=== PATIENT | male | born 1940 | race Caucasian/White ===

== ENCOUNTER 2017-02-19 22:52 | Emergency (ER) | payer OTHER ==
[~2017-02-19] VITALS: Ht 167.6 cm; Wt 84.2 kg
[~2017-02-19 22:52] MED LIST: ALBU17I INH; DUONI NEB; MOME1AER2 INH; PRED50; PRED5SOL PO; PROT40TA PO; [UNRECOGNIZED DRUG - CODE] OU
[2017-02-19 22:59] VITALS: BP 158/74; PULSE 70; RESP 16; TEMP 97.7; O2SAT 93
== END 2017-02-20 00:05 | disposition left against medical advice (07) ==
LOC: PHED 22:52
DX: Z53.21 Procedure and treatment not carried out due to patient leaving prior to being seen by health care provider (principal)
CPT/HCPCS: 99281

== ENCOUNTER → 2017-07-15 | Outpatient (CLI) | payer OTHER ==
[~2017-07-15] MED LIST changes: +AK-T0.3S EACH EYE; +ASPI81TA23 PO; +BETAX.25%O EACH EYE; +CITRTAB7 PO; +DORZ2SOL EACH EYE; +DOXY1LIQ3 PO; +GLUC100013 PO; +IPRAAER INH; +LORA0.5T PO; +MAGN400T2 PO; +MEDI220T PO; +MELA1CHW3 CHEW; +OMEP20TA93 PO; +SYMB160A INH; +VENL37.595 PO
== END ==
LOC: CPRE 11:34
PROVIDERS: ATTEND Orthopaedic Surgery Orthopaedic Surgery of the Spine
DX: Z01.818 Encounter for other preprocedural examination (principal)

== ENCOUNTER 2017-07-22 10:11 | Inpatient (IN) | payer OTHER, MEDICARE ==
[~2017-07-22] VITALS: Ht 170.2 cm; Wt 81.1 kg
[~2017-07-22 10:11] MED LIST changes: -ALBU17I INH; -DUONI NEB; -MOME1AER2 INH; -PRED50; -PRED5SOL PO; -PROT40TA PO; -[UNRECOGNIZED DRUG - CODE] OU
[2017-07-22] MEDS ORDERED: VANCOMYCIN 1 GM/200 ML INJ 200 ML IV ONE (11:32)
[2017-07-22] MEDS ORDERED: LACTATED RINGER'S 1000 ML IV PRN (12:00)
[2017-07-22] MEDS ORDERED: CHLORHEXIDINE GLUCONATE 2 % 1 PACK (2 CLOTHS) TOPICAL PRN (12:00)
[2017-07-22] MEDS ORDERED: ceFAZolin 2 GM PREMIX 50 ML IV SCH (12:00)
[2017-07-22] MEDS ORDERED: INSULIN HUMAN REGULAR 1,000 UNITS/10 ML VIAL SQ PRN (12:00)
[2017-07-22] MEDS ORDERED: VANCOMYCIN 1000 MG/NS 250 ML (for <70 kg) IV SCH ×2 (12:00)
[2017-07-22] MEDS ORDERED: SODIUM CHLORID 0.9% 500 ML IV PRN (12:00)
[2017-07-22] MEDS ORDERED: CHLORHEXIDINE GLUCONATE 4% SOLN 120 ML BTL TOPICAL SCH (12:00)
[2017-07-22] MEDS ORDERED: METOPROLOL TARTRATE 25 MG TAB PO PRN (12:00)
[2017-07-22] MEDS ORDERED: POVIDONE IODINE 5% (ANTISEPSIS KIT) 4 APPLICATIONS EACH NARE PRN (12:00)
[2017-07-22] MEDS ORDERED: PROPOFOL 500 MG/50 ML INJ 100 ML ONE (12:53)
[2017-07-22] MEDS ORDERED: GENTAMICIN SULFATE 80 MG/2 ML VIAL ONE (12:58)
--- NOTE | 2017-07-22 15:11 | HHI.PR ---
Immediate Post Op Note Procedure Date: Jul 22, 2017 Pre Op Diagnosis: L Hip OA Post Op Diagnosis: Same Surgeon: Jose G Barrow MD Piece Jobber(s): Paola Cardoza PA-C Procedure: L THR Complications: None Specimen(s) removed: None Estimated blood loss: 250 cc Anesthesia: Spinal Drains: None Patient to: PACU Patient Condition: Good Implant/Devices: SEE IMPLANT LOG (if applicable) Date/Time of Procedure: SEE SURGICAL CARE RECORD Jose G Barrow MD Jul 22, 2017 15:11
[2017-07-22] MEDS ORDERED: Post-op Orders (for Pharmacy) XX ONE (15:15)
[2017-07-22] MEDS ORDERED: ONDANSETRON HCL 4 MG/2 ML VIAL IVP PRN (15:15)
[2017-07-22] MEDS ORDERED: ALUMINUM/MAGNESIUM/SIMETH 30 ML CUP PO PRN (15:15)
[2017-07-22] MEDS ORDERED: MORPHINE SULFATE 8 MG/ML INJ IV PUSH PRN (15:15)
[2017-07-22] MEDS ORDERED: ZOLPIDEM TARTRATE 5 MG TAB PO PRN (15:15)
[2017-07-22] MEDS ORDERED: VENLAFAXINE HCL XR 37.5 MG CAP PO PRN (15:15)
--- NOTE | 2017-07-22 15:18 | HHI.FF ---
Face to Face Verification Diagnosis: (1) Osteoarthritis of left hip Physical Therapy Gait training, Transfer training, bed to chair Hip: Total hip, Protocol: Left, Posterior hip precautions Canvas Knee Splint: Other (while sleeping at night ) Right LE Weight Bearing: WB as tolerated Left LE Weight Bearing: WB as tolerated Nursing RN Days per Week: 3 x Week(s): 2 Nursing: Dressing changes (clean incision with alcohol and apply dry sterile dressing daily ) Additional Instructions Aspirin 81 mg BID x 4 weeks DVT prop I have seen patient Maicol Guaman on 07/22/17. My clinical findings support the need for the requested home health care services because: Deconditioned w/ increased weakness I certify that my clinical findings support that this patient is homebound because: Post-op weakness Jose G Barrow MD Jul 22, 2017 15:18
[2017-07-22] MEDS ORDERED: BEDSIDE COMMODE1 MI1 (15:19)
[2017-07-22] MEDS ORDERED: WALKER WHEELS/F1 MIS (15:19)
[2017-07-22] MEDS ORDERED: DO NOT ADM ANY ANTICOAGULANT DRUGS PRN (15:20)
[2017-07-22] MEDS ORDERED: ACETAMINOPHEN 1000 MG/100 ML 100 ML IV ONE (15:29)
[2017-07-22] MEDS: LACTATED RINGER'S 1000 ML INJ 1,000 ML IV SCH (15:50)
--- NOTE | 2017-07-22 16:06 | RADRPT ---
EXAM DATE/TIME: 07/22/2017 15:30 [place] COMPARISON: No previous studies available for comparison. INDICATIONS : Post op left hip MEDICAL HISTORY : None. SURGICAL HISTORY : left hip replaced ENCOUNTER: Initial ACUITY: 1 day PAIN SCORE: Non-responsive. LOCATION: Left hip FINDINGS: A lateral view of the left hip with AP pelvis was obtained. Left hip arthroplasty. Postsurgical crandall es. No hardware loosening or fracture. CONCLUSION: 1. Left hip arthroplasty. Jayro Morales MD on July 22, 2017 at 16:03 Board Certified Radiologist. This report was verified electronically.
[2017-07-22] MEDS: LORazepam 0.5 MG TAB PO PRN (16:23)
[2017-07-22] MEDS ORDERED: *LABETALOL HCL 100 MG/20 ML VIAL PERIprocedural Use ONLY ONE (16:30)
[2017-07-22] MEDS ORDERED: *MEPERIDINE 25 MG INJ VIAL PERIprocedural Use ONLY ONE (16:30)
[2017-07-22] MEDS: ALBUTEROL SULFATE 90 MCG/ACT HFA 18 GM INHALER INH SCH ×2 (18:00→21:19)
[2017-07-22] MEDS ORDERED: NON-FORMULARY DRUG (Ipratropium-Albuterol Inh (Combivent Respimat Inh) 1 PUFF) INH SCH (18:00)
[2017-07-22] MEDS: ASPIRIN EC 81 MG TABEC PO SCH (20:20)
[2017-07-22 20:35] VITALS: BP 147/85; PULSE 102; RESP 19; TEMP 96.7; O2SAT 98
[2017-07-22] MEDS: BETAXOLOL HCL 0.25% EACH EYE SCH (21:13)
[2017-07-22] MEDS: DORZOLAMIDE 2% OPTH SOLN 200 DROP/10 ML BTLO EACH EYE SCH (21:14)
[2017-07-22] MEDS: BUDESONIDE-FORMOTEROL 160/4.5 MCG INHALER INH SCH (21:18)
[2017-07-22 23:45] VITALS: BP 145/82; PULSE 99; RESP 19; TEMP 96.8; O2SAT 97
[2017-07-23] MEDS: ACETAMINOPHEN/HYDROcodone 325 MG/7.5 MG TAB PO PRN ×3 (02:03→14:18)
[2017-07-23 04:25] VITALS: BP 126/77; PULSE 85; RESP 18; TEMP 97.2; O2SAT 6
[2017-07-23] MEDS: LACTATED RINGER'S 1000 ML INJ 1,000 ML IV SCH ×2 (05:48→16:00)
--- NOTE | 2017-07-23 07:07 | PD.ORT.PN ---
Subjective Subjective Remarks POD#1 L THR No sob;no chest pain Patient comfortable;he wishes to go home today Objective Vitals Vital Signs Date Time Temp Pulse Resp B/P (MAP) Pulse Ox O2 Delivery O2 Flow Rate FiO2 07/23/17 04:25 97.2 85 18 126/77 (93) 6 07/23/17 04:00 Nasal Cannula 3.00 07/22/17 23:45 96.8 99 19 145/82 (103) 97 07/22/17 20:35 96.7 102 19 147/85 (105) 98 07/22/17 18:20 86 18 120/73 (89) 96 Nasal Cannula 2 07/22/17 18:00 77 19 132/68 (89) 97 Nasal Cannula 2 07/22/17 17:45 76 20 151/73 (99) 97 Nasal Cannula 2 07/22/17 17:33 97.4 07/22/17 17:30 97.4 66 19 118/59 (78) 96 Nasal Cannula 2 07/22/17 17:15 61 19 136/66 (89) 97 Nasal Cannula 2 07/22/17 17:00 67 17 138/65 (89) 98 Nasal Cannula 2 07/22/17 16:45 63 20 176/83 (114) 100 Nasal Cannula 2 07/22/17 16:30 66 15 187/85 (119) 100 Nasal Cannula 2 07/22/17 16:15 66 14 172/80 (110) 100 Nasal Cannula 2 07/22/17 16:00 70 13 156/89 (111) 100 Nasal Cannula 2 07/22/17 15:45 54 15 147/69 (95) 100 Nasal Cannula 2 07/22/17 15:30 65 21 133/76 (95) 100 Nasal Cannula 2 07/22/17 15:20 96.2 07/22/17 15:19 96.2 68 16 134/76 (95) 100 Nasal Cannula 2 07/22/17 11:23 98.3 70 16 149/79 (102) 96 I/O 07/22/17 07/22/17 07/22/17 07/23/17 07/23/17 07/23/17 07:00 15:00 23:00 07:00 15:00 23:00 Intake Total 2710 ml Output Total 800 ml Balance 1910 ml Intake Oral 410 ml IV Total 300 ml Other 2000 ml Output Urine Total 550 ml Estimated Blood Loss 250 ml # Bowel Movements 0 Objective Remarks Seen with N/V intact No calf tenderness;neg myesha's sign No LLD Assessment & Plan Assessment and Plan Ortho stable PT/Rehab Aspirin EC 81 mg BIDx4 weeks;TEDS for DVT prophylaxsis D/C home today Jose G Barrow MD Jul 23, 2017 07:07
[2017-07-23 07:15] LABS: HEMATOCRIT 37.4 % (39.0-51.0)
[2017-07-23 08:00] VITALS: BP 134/71; PULSE 95; RESP 18; TEMP 96.8; O2SAT 94
[2017-07-23] MEDS: TOBRAMYCIN SULF 0.3% OPHT SOLN 5 ML BTL EACH EYE SCH (08:21)
[2017-07-23] MEDS: BETAXOLOL HCL 0.25% EACH EYE SCH ×2 (08:21→20:22)
[2017-07-23] MEDS: DORZOLAMIDE 2% OPTH SOLN 200 DROP/10 ML BTLO EACH EYE SCH ×2 (08:22→20:22)
[2017-07-23] MEDS: BUDESONIDE-FORMOTEROL 160/4.5 MCG INHALER INH SCH ×2 (08:22→20:22)
[2017-07-23] MEDS: ALBUTEROL SULFATE 90 MCG/ACT HFA 18 GM INHALER INH SCH ×4 (08:22→20:22)
[2017-07-23] MEDS: ASPIRIN EC 81 MG TABEC PO SCH ×2 (08:23→20:20)
[2017-07-23] MEDS: TIOTROPIUM BROMIDE 18 MCG INH INH SCH (08:24)
[2017-07-23 08:47] VITALS: O2SAT 95
[2017-07-23] MEDS ORDERED: PANTOPRAZOLE SOD 20 MG DELAYED RELEASE TAB PO PRN (09:00)
[2017-07-23 11:49] VITALS: BP 160/79; PULSE 100; RESP 18; TEMP 96.3; O2SAT 93
[2017-07-23 16:00] VITALS: BP 155/72; PULSE 110; RESP 18; TEMP 96.1; O2SAT 92
--- NOTE | 2017-07-23 19:06 | MP ---
cc: CHIARA BARROW YU H. MD DATE OF SURGERY 07/22/16 PREOPERATIVE DIAGNOSIS Left hip severe osteoarthritis. POSTOPERATIVE DIAGNOSIS Left hip severe osteoarthritis. PROCEDURE Left total hip arthroplasty. SURGEON Christoph Barrow MD ASSESSMENT TRISTAN Robledo ESTIMATED BLOOD LOSS 250 mL COMPLICATIONS None. SPECIMEN None PLAN OF ACTIVITY As per orders. PROCEDURE IN DETAIL My assistant elementary teacher TRISTAN Garber, was present for the entire surgical case. She was medically necessary for the entire case because of the complexity of the case and to facilitate the performance of the procedure. The WORKERS' COMPENSATION HEARINGS OFFICER at the back table was not a skill set in this case to manipulate the instruments e.g. multiple different types of soft tissue tractors, trial implants and permanent implants. The patient was brought into the operating room, had satisfactory spinal anesthesia by the Department of Anesthesia. The patient was placed in the lateral decubitus position. All pressure points were well-padded. The left hip and lower extremity down to and including the toes was prepped, draped in usual sterile manner. A small posterolateral exposure hip was made. All bleeders were coagulated. The fascia marie and gluteus maryann was incised. The lateral incision was in line with the skin incision. Charnley retractor was placed in the wound in order to allow better exposure. Great care was made to protect the sciatic nerve throughout the entire operative procedure. The short externals removed as a group. The hip abductors were preserved and a capsulotomy performed. The hip was dislocated posteriorly. Osteotomy was made on the femoral neck at the appropriate level. Exposure to the acetabulum was made. The acetabular capsule and labrum were surgically excised. Hemispherical reamers were used initially to medialize the acetabulum and then appropriately widen the acetabular to 51 mm outer diameter. Using a bicentric cup in Press-Fit type manner. Patient was found to be stable and satisfactory. Attention was brought to the femur. It was sequentially broached to a #8 standard offset broach, +3 neck was placed onto trunnion. Trial reduction was made. Patient was found to have satisfactory stability of the hip and satisfactory limb lengths and satisfactory range of motion. Hip again was dislocated posteriorly and all trial components were removed. The wound was irrigated with copious amounts of sterile saline antibiotic solution. The wound itself was dry. Using the Biomet taper lock system, a #8 standard offset stem was placed in approximately 15 degrees of anteversion with an "excellent fit and fill". A +3 neck, 28 mm ball was assembled onto the trunnion. The hip again was reduced. Patient was found to have satisfactory stability to the hip, satisfactory limb lengths and satisfactory range of motion. The short external rotators were repaired back to greater trochanter with drill holes using #2 Tycron suture. The fascia marie gluteus maryann was closed in line with the skin incision. A #2 Tycron suture to the subcutaneous layers with 0 Vicryl and 2-0 Vicryl. Skin was approximated with running subcuticular 3-9 nylon. Sterile dressings were applied. The patient tolerated the procedure well, went to recovery room in stable and satisfactory condition. MD ANA Victoria/ /3:01 PM /6:38 PM
[2017-07-23 20:00] VITALS: BP 160/86; PULSE 108; RESP 16; TEMP 98.6; O2SAT 94
[2017-07-23] MEDS: LORazepam 0.5 MG TAB PO PRN (20:20)
[2017-07-23] MEDS: DOCUSATE SODIUM 100 MG CAP PO SCH (20:20)
[2017-07-23 20:33] LABS: AMORPHOUS SEDIMENT, URINE RARE; BILIRUBIN, URINE NEG (NEG); BLOOD, URINE NEG (NEG); GLUCOSE,URINE NEG (NEG); HYALINE CAST, URINE 3 /lpf (RARE); KETONE, URINE 10 mg/dL (NEG); MUCUS URINE FEW /lpf (OCC); NITRITE,URINE NEG (NEG); SQUAMOUS EPITHELIAL CELL URINE <1 /hpf (0-5); URIC ACID CRYSTALS, URINE RARE /hpf; URINE COLOR YELLOW (YELLW/STRAW); URINE LEUKOCYTE ESTERASE NEG (NEG)
[2017-07-24] VITALS: BP 188/76; PULSE 102; RESP 17; TEMP 98.9; O2SAT 91; O2SAT 94
[2017-07-24] MEDS: LACTATED RINGER'S 1000 ML INJ 1,000 ML IV SCH ×2 (04:30→06:55)
--- NOTE | 2017-07-24 07:41 | PD.ORT.PN ---
Subjective Subjective Remarks pt doing much better today ready to be discharged home Objective Vitals Vital Signs Date Time Temp Pulse Resp B/P (MAP) Pulse Ox O2 Delivery O2 Flow Rate FiO2 07/24/17 00:00 94 07/24/17 00:00 98.9 102 17 188/76 (113) 91 07/23/17 20:00 98.6 108 16 160/86 (110) 94 07/23/17 16:00 96.1 110 18 155/72 (99) 92 07/23/17 11:49 96.3 100 18 160/79 (106) 93 07/23/17 08:47 95 07/23/17 08:00 96.8 95 18 134/71 (92) 94 I/O 07/23/17 07/23/17 07/23/17 07/24/17 07/24/17 07/24/17 07:00 15:00 23:00 07:00 15:00 23:00 Intake Total 360 ml 720 ml 960 ml Output Total 525 ml Balance -165 ml 720 ml 960 ml Intake Oral 360 ml 720 ml 960 ml Output Urine Total 525 ml # Voids 4 4 # Bowel Movements 0 0 Result Diagram: 07/23/17 0630 Objective Remarks Seen with patient alert and oriented N/V intact No calf tenderness;neg myesha's sign No LLD left hip dressing dry and intact, moderate amount of ecchymosis Assessment & Plan Assessment and Plan POD # 2 s/p L ELLIE ice to hip Ortho stable PT/Rehab Aspirin EC 81 mg BIDx4 weeks;TEDS for DVT prophylaxsis [facility] Paola Cardoza Jul 24, 2017 07:41
[2017-07-24 08:00] VITALS: BP 141/63; PULSE 94; RESP 18; TEMP 99.7; O2SAT 91
[2017-07-24] MEDS: ALBUTEROL SULFATE 90 MCG/ACT HFA 18 GM INHALER INH SCH ×3 (08:32→10:00)
[2017-07-24] MEDS: BETAXOLOL HCL 0.25% EACH EYE SCH (08:34)
[2017-07-24] MEDS: BUDESONIDE-FORMOTEROL 160/4.5 MCG INHALER INH SCH (08:34)
[2017-07-24] MEDS: TOBRAMYCIN SULF 0.3% OPHT SOLN 5 ML BTL EACH EYE SCH (08:34)
[2017-07-24] MEDS: DORZOLAMIDE 2% OPTH SOLN 200 DROP/10 ML BTLO EACH EYE SCH (08:34)
[2017-07-24] MEDS: DOCUSATE SODIUM 100 MG CAP PO SCH (08:35)
[2017-07-24] MEDS: ASPIRIN EC 81 MG TABEC PO SCH (08:35)
[2017-07-24] MEDS: TIOTROPIUM BROMIDE 18 MCG INH INH SCH (08:35)
[2017-07-24 12:00] VITALS: BP 139/67; PULSE 96; RESP 18; TEMP 99.5; O2SAT 90
[2017-07-24] MEDS: ACETAMINOPHEN/HYDROcodone 325 MG/7.5 MG TAB PO PRN (14:45)
== END 2017-07-24 16:08 | disposition home health service (06) | DRG 470 ==
LOC: HSDI 10:11 → N06B 18:30 → N06A 07-23 16:01
PROVIDERS: ADMIT Orthopaedic Surgery Orthopaedic Surgery of the Spine; ATTEND Orthopaedic Surgery Orthopaedic Surgery of the Spine
PROC: 0SRB0JA Replacement of Left Hip Joint with Synthetic Substitute, Uncemented, Open Approach (ICD-10-PCS; principal; 2017-07-22 13:11)
DX: M16.12 Unilateral primary osteoarthritis, left hip (principal); H40.9 Unspecified glaucoma; M51.36 Other intervertebral disc degeneration, lumbar region; M81.0 Age-related osteoporosis without current pathological fracture; M43.10 Spondylolisthesis, site unspecified; Z87.891 Personal history of nicotine dependence
CPT/HCPCS: 73501; 81001; 85014; 85018; 86850; 86900; 86901; 86920; 94150; C1776; J0131; J0690; J1580; J2175; J2405; J3010; J3370; J7120; L1830

== ENCOUNTER 2018-04-04 15:04 | Observation (INO) ==
[2018-04-04] MEDS ORDERED: Metoprolol Tartrate 25 MG Tablet PO ONE (15:37)
[2018-04-04] MEDS ORDERED: Chlorhexidine Gluconate 2% 1 Pack (2 Cloths) TOPICAL ONE (15:37)
[2018-04-04] MEDS ORDERED: ceFAZolin 2 GM IV; once IV.SIG SCH (15:45)
[2018-04-04] MEDS ORDERED: Sodium Chlor 0.9% Inj 500 ML IV.SIG SCH (16:00)
[2018-04-04] MEDS ORDERED: Neomycin/Polymyxin G.U. Irrigant 1 ML Ampul ONE (22:00)
[2018-04-04] MEDS ORDERED: Lidocaine 2% Inj 50 ML Vial ONE (22:05)
[2018-04-04] MEDS ORDERED: Bupivacaine 0.5% Inj 50 ML MDV Vial ONE (22:05)
[2018-04-04] MEDS ORDERED: Lidocaine PF 1% Inj 5 ML Syringe INFILTRATN ONE (22:07)
[2018-04-04] MEDS ORDERED: Acetaminophen/Codeine 300/30 MG Tablet PO PRN (22:59)
[2018-04-04] MEDS ORDERED: fentaNYL Citrate Inj 100 MCG/2 ML Ampul ONE (23:05)
--- NOTE | 2018-04-04 23:07 | P.OP ---
- Preoperative Diagnosis (1) Foreign body of right middle finger - Postoperative Diagnosis (1) Foreign body of right middle finger Procedure: exploration and removal of foreign body right middle finger Anesthesia: other (LMA) Surgeon: Tony Lemus MD Estimated blood loss (mL): 3 Tourniquet time (min): 12 Pathology: none sent Operation and Findings: cat fist ian right middle finger
--- NOTE | 2018-04-04 23:31 | MP ---
cc: Tony Lemus MD DATE OF OPERATION: 04/04/2018 PREOPERATIVE DIAGNOSIS: Foreign body, right middle finger. POSTOPERATIVE DIAGNOSIS: Foreign body, right middle finger. PROCEDURE PERFORMED: Exploration and removal of foreign body, right middle finger. SURGEON: Tony Lemus MD ANESTHESIA: LMA. ESTIMATED BLOOD LOSS: Minimal. TOURNIQUET TIME: 12 minutes. SPECIMEN REMOVED: Catfish ian to the back table. INDICATIONS: The patient is a 77-year-old male who presented with a history of catfish ian within the right middle finger 4 days ago. He complained of pain and swelling of the right middle finger. X-ray showed foreign body within the right middle finger on the volar radial aspect of the middle finger proximal phalanx region. He had a scab over the webspace between the index and the middle fingers. The patient was consented for exploration and removal of foreign body. He was explained the risks and benefits of the procedure. DESCRIPTION OF PROCEDURE: The patient was brought to the operating room under LMA. The right upper extremity was sterilely prepped and draped. Using C-arm guidance, an incision site was marked along the volar radial aspect of the middle finger, corresponding to the catfish ian at the base of the proximal phalanx measuring about 1 cm. The limb was exsanguinated using Esmarch tourniquet. Tourniquet was inflated to 250 mmHg. An incision was then made over the proposed incision site. Soft tissue dissection was carried out. Under C-arm guidance, a catfish ian was found within the volar radial soft tissues of the middle finger, close to the proximal phalanx. The catfish ian was removed in entirety, measured about 1 cm long. C-arm was used to confirm complete removal of the foreign body. Multiple views were obtained. Thorough wash was given using normal saline with irrigant. Tourniquet was deflated at 12 minutes. He had good distal circulation after release of tourniquet. Skin was approximated using 5-0 nylon horizontal mattress interrupted fashion. The scab wound was left open. A bulky hand dressing was applied, which was held in place with bias hand wrap. The patient was recovered and sent to recovery in stable condition. The plan will be to discharge home tomorrow to continue with p.o. antibiotics. MD Carlos Chaney , 11:10 PM , 11:17 PM
[2018-04-05] MEDS ORDERED: Budesonide-Formoterol 160/4.5 MCG 6 GM Inhaler INH SCH (07:00)
--- NOTE | 2018-04-05 11:32 | P.CONIM ---
History of Present Illness Requesting Physician: Tony Lemus Reason for Consult: Opinion recommendation treatment of patient's COPD and GERD history. Primary Care Provider: Leonila Vincent MD Chief Complaint: I want to be discharged. I feel good. History of Present Illness: 77-year-old white male with history of COPD, GERD who was recently placed on observation for pain control antibiotics after a expiration and removal of foreign body in the right MPB by hand surgery. He has not had any fevers or chills overnight. He states that his pain is controlled. He is not short of breath and states that his COPD is usually controlled well at home with inhalers. He is not taking anything in particular for his history of GERD. He denies any other symptoms of chest pain, abdominal pain, nausea or vomiting. He would like to be discharged home today. Review of Systems All other systems reviewed negative except as stated in [facility] - History History Provided By: Patient - Medical History Medical History: Medical History (Last Reviewed 04/05/18 @ 11:28 by Elvia Diamond MD) COPD (chronic obstructive pulmonary disease) GERD (gastroesophageal reflux disease) Glaucoma History of anesthesia reaction - Surgical History Surgical History: Surgical History (Last Reviewed 04/05/18 @ 11:28 by Elvia Diamond MD) H/O cataract removal with insertion of prosthetic lens History of left hip replacement - Family History Family History: Family History (Last Updated 04/05/18 @ 11:29 by Elvia Diamond MD) Mother Family history of breast cancer - Social History I have reviewed the patient's Social History: Yes - Tobacco History Second Hand Smoke Exposure: No Smoking Status: Never smoker - Alcohol History How Often Do You Have a Drink Containing Alcohol: 2 to 3 times a week - Substance Use History Substance History: No History of Abuse - Travel History Recent Travel in the [place] Within the Last 8 Weeks: No Recent Travel Out of the Country Within the Last 8 Weeks: No Medications and Allergies Active Medications: Active Medications Acetaminophen/Codeine Phosphate (Tylenol W/Cod #3) 1 tab PO Q6H PRN PRN Reason: PAIN SCALE 1 TO 10 Budesonide/Formoterol Fumarate (Symbicort 160/4.5 Mcg Inh) 2 puff INH BID@0700, 1900 BRITTNEY Last Admin: 04/05/18 07:27 Dose: 2 puff Lactated Ringer's (Lr 1000 Ml Inj) 1,000 mls @ 30 mls/hr IV.SIG .Q24H [facility] Stop: 04/05/18 15:44 Last Admin: 04/04/18 16:02 Dose: 30 mls/hr Cefazolin Sodium/Dextrose (Ancef 2 Gm Premix Inj) 2 gm in 50 mls @ 100 mls/hr IV.SIG OPERATIONS SCHEDULER [facility] Stop: 04/06/18 15:44 Lactated Ringer's (Lr 1000 Ml Inj) 1,000 mls @ 30 mls/hr IV.SIG .Q24H [facility] Miscellaneous Information ([facility] 1 each OTHER UNSCH PRN PRN Reason: SEE LABEL COMMENTS Stop: 04/05/18 23:32 Allergies Allergy/AdvReac Type Severity Reaction Status Date / Time No Known Allergies Allergy Verified 04/04/18 15:52 Home Medications Medication Instructions Recorded Confirmed Type budesonide-formoterol [Symbicort] 2 puff INHALATION BID 04/04/18 04/04/18 History ipratropium-albuterol [Combivent 1 puff INHALATION Q6H 04/04/18 04/04/18 History Respimat] Exam Vital signs: Vital Signs 04/04/18 15:53 04/04/18 17:40 04/04/18 22:58 Temperature 97.1 F L 98 F 97.5 F L Pulse Rate 85 70 77 Respiratory Rate 18 16 14 Blood Pressure 133/80 162/75 H 134/64 Pulse Oximetry 96 97 96 04/04/18 23:00 04/04/18 23:15 04/04/18 23:45 Temperature 98 F 97.5 F L 98.4 F Pulse Rate 70 71 73 Respiratory Rate 16 14 14 Blood Pressure 128/60 163/75 H 159/83 H Pulse Oximetry 96 94 L 95 04/05/18 00:00 04/05/18 04:00 04/05/18 08:00 Temperature 97.7 F 97.3 F L 97.5 F L Pulse Rate 70 73 65 Respiratory Rate 18 17 16 Blood Pressure 134/64 126/60 136/75 Pulse Oximetry 94 L 94 L 94 L Intake & Output 04/04/18 04/05/18 04/05/18 18:59 06:59 18:59 Intake Total 300 / 300 Output Total 653 / 653 Balance -353 / -353 Weight 82 kg 87.1 kg Intake: Anesthesia Amount 300 / 300 Output: Urine 650 / 650 Estimated Blood Loss 3 / Other: Date of Last Bowel Movement 04/03/18 04/04/18 Weight On Admission 82 kg Narrative: GENERAL: . Well-nourished well-developed white male no acute distress SKIN: Warm and dry. HEAD: Atraumatic. Normocephalic. EYES: Pupils equal and round. No scleral icterus. No injection or drainage. ENT: No nasal bleeding or discharge. Mucous membranes pink and moist. NECK: Trachea midline. No JVD. CARDIOVASCULAR: Regular rate and rhythm. RESPIRATORY: No accessory muscle use. Clear to auscultation. Breath sounds equal bilaterally. GASTROINTESTINAL: Abdomen soft, non-tender, nondistended. Hepatic and splenic margins not palpable. MUSCULOSKELETAL: Extremities without clubbing, cyanosis, or edema. Right hand bandage clean dry intact neurovascularly intact. NEUROLOGICAL: Awake and alert. No obvious cranial nerve deficits. Motor grossly within normal limits. Five out of 5 muscle strength in the arms and legs. Normal speech. PSYCHIATRIC: Appropriate mood and affect; insight and judgment normal. Assessment and Plan - Plan 69-year-old white male with a history of COPD and GERD and recent foreign body of the right middle phalanx 1. Status post operative day #1 foreign body removal of catfish ian from the right middle phalanxcontinue postoperative care, wound care, pain control per hand surgery. 2. COPDcontinue with home inhalers and bronchodilators. Patient is not in acute exacerbation. 3. GERDPPI as needed. 4. DVT prophylaxisSCDs. Thank you for this consultation.
--- NOTE | 2018-04-05 12:37 | ECG ---
Date Performed: 04/04/2018 Time Performed: 15:48:35 PTAGE: 77 years EKG: Sinus rhythm NORMAL ECG Since PREVIOUS TRACING , no significant change noted PREVIOUS TRACIN02/02/2013 01.25 DOCTOR: Ean Lancaster Interpretating Date/Time 04/05/2018 12:36:03
== END 2018-04-05 11:43 | disposition home or self-care (01) ==
LOC: HSDC 15:04 → N06 15:04
PROVIDERS: ADMIT Surgery Surgery of the Hand; ATTEND Surgery Surgery of the Hand